=== PATIENT | male | born 1990 | race Caucasian/White ===

== ENCOUNTER 2024-07-28 12:54 | Emergency (ER) | payer OTHER, SELFPAY ==
[2024-07-28 13:07] VITALS: BP 141/91
[2024-07-28] MEDS: MOTRIN 600 MG PO (13:54)
[2024-07-28 13:57] VITALS: BMI 31.2
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
== END 2024-07-28 15:51 | disposition home or self-care (01) ==
LOC: EMR 12:54
PROVIDERS: EMERGENCY PHYSICIAN Student in an Organized Health Care Education/Training Program
DX: S29.011A Strain of muscle and tendon of front wall of thorax, initial encounter (principal); Y04.8XXA Assault by other bodily force, initial encounter; Y92.149 Unspecified place in prison as the place of occurrence of the external cause; Y99.0 Civilian activity done for income or pay
CPT/HCPCS: 99283; 73030